=== PATIENT | male | born 1975 | race Caucasian/White ===

== ENCOUNTER → 2024-04-28 09:58 | Outpatient (REF) | payer OTHER, SELFPAY | LOC: RAD 09:58 | PROVIDERS: ATTENDING PHYSICIAN Nurse Practitioner; FAMILY PHYSICIAN Family Medicine | DX: K59.00 Constipation, unspecified (principal) | CPT/HCPCS: 74177; Q9967 ==

== ENCOUNTER 2024-07-12 06:14 | Day surgery (SDC) | payer OTHER, SELFPAY | END 2024-07-12 10:27 | disposition home or self-care (01) | LOC: GI 06:14 | PROVIDERS: ATTENDING PHYSICIAN Internal Medicine Gastroenterology | DX: K62.5 Hemorrhage of anus and rectum (principal); R93.3 Abnormal findings on diagnostic imaging of other parts of digestive tract; K64.8 Other hemorrhoids; K57.30 Diverticulosis of large intestine without perforation or abscess without bleeding; R12 Heartburn; K44.9 Diaphragmatic hernia without obstruction or gangrene; K31.7 Polyp of stomach and duodenum; K31.89 Other diseases of stomach and duodenum; D12.2 Benign neoplasm of ascending colon; D12.4 Benign neoplasm of descending colon; K63.5 Polyp of colon | CPT/HCPCS: 45385; 45380; 43239; 88305; 88342 ==

== ENCOUNTER 2024-11-11 06:26 | Day surgery (SDC) | payer OTHER, SELFPAY ==
[2024-11-11 11:14] VITALS: BP 119/83
[2024-11-11 11:19] VITALS: BMI 25.6
[2024-11-11 12:18] VITALS: BP 105/78
[2024-11-11 12:30] VITALS: BP 112/86
[2024-11-11 12:45] VITALS: BP 121/78
== END 2024-11-11 13:02 | disposition home or self-care (01) ==
LOC: SDS 06:26
PROVIDERS: ATTENDING PHYSICIAN Internal Medicine Gastroenterology
DX: K44.9 Diaphragmatic hernia without obstruction or gangrene (principal); K31.7 Polyp of stomach and duodenum
CPT/HCPCS: 43251; 88305